=== PATIENT | female | born 1985 | race Two or more races ===

== ENCOUNTER 2019-04-19 15:16 | Emergency (ER) | payer MEDICAID ==
[~2019-04-19] VITALS: Ht 162.6 cm; Wt 68.0 kg
[2019-04-19 16:21] VITALS: BP 128/63
== END 2019-04-19 17:15 | disposition home or self-care (01) ==
LOC: ER 15:36
DX: S46.912A Strain of unspecified muscle, fascia and tendon at shoulder and upper arm level, left arm, initial encounter (principal); J45.909 Unspecified asthma, uncomplicated; F41.9 Anxiety disorder, unspecified; X50.0XXA Overexertion from strenuous movement or load, initial encounter; Y93.B9 Activity, other involving muscle strengthening exercises; Y92.89 Other specified places as the place of occurrence of the external cause; Y99.8 Other external cause status
CPT/HCPCS: 93005